=== PATIENT | female | born 1960 | race Caucasian/White ===

== ENCOUNTER → 2017-08-23 | Outpatient (CLI) | payer BC | END | disposition home or self-care (01) | LOC: CFH 11:03 | PROVIDERS: ATTEND Family Medicine | DX: Z12.31 Encounter for screening mammogram for malignant neoplasm of breast (principal) | CPT/HCPCS: 77063; G0202 ==

== ENCOUNTER → 2018-06-19 | Outpatient (CLI) | payer BC | END | disposition home or self-care (01) | LOC: CFH 10:35 | PROVIDERS: ATTEND Nurse Practitioner Family | DX: M54.6 Pain in thoracic spine (principal) | CPT/HCPCS: 72072 ==

== ENCOUNTER 2018-08-30 07:40 | Outpatient (CLI) | payer BC | END 2018-09-06 11:26 | disposition home or self-care (01) | LOC: CFH 07:40 | PROVIDERS: ATTEND Nurse Practitioner Family | DX: Z12.31 Encounter for screening mammogram for malignant neoplasm of breast (principal) | CPT/HCPCS: 77063; 77067 ==

== ENCOUNTER → 2019-11-01 | Outpatient (CLI) | payer BC | END | disposition home or self-care (01) | LOC: CFH 12:02 | PROVIDERS: ATTEND Family Medicine | DX: Z12.31 Encounter for screening mammogram for malignant neoplasm of breast (principal); N64.89 Other specified disorders of breast | CPT/HCPCS: 77063; 77067 ==

== ENCOUNTER 2019-11-09 09:34 | Emergency (ER) | payer BC ==
[~2019-11-09] VITALS: Ht 165.1 cm; Wt 71.3 kg
[2019-11-09 10:28] LABS: BASOPHILS # (AUTO) 0.04 x10^3/uL (0-0.1); BASOPHILS % (AUTO) 1 % (0-1); EOSINOPHILS # (AUTO) 0.07 x10^3/uL (0-0.4); EOSINOPHILS % (AUTO) 1 % (1-7); LYMPHOCYTES # (AUTO) 1.59 x10^3/uL (1-3.4); LYMPHOCYTES % (AUTO) 19 % (22-44); MD NO; MEAN CORPUSCULAR HEMOGLOBIN 29.7 pg (27.0-34.8); MEAN CORPUSCULAR HGB CONC 33.4 g/dL (32.4-35.8); MEAN CORPUSCULAR VOLUME 89.1 fL (80-100); MEAN PLATELET VOLUME 9.1 fL (7.4-10.4); MONOCYTES # (AUTO) 0.38 x10^3/uL (0.2-0.8); MONOCYTES % (AUTO) 5 % (2-9); NEUTROPHILS # (AUTO) 6.23 x10^3/uL (1.8-6.8); NEUTROPHILS % (AUTO) 75 % (42-75); PLATELET COUNT 240 x10^3/uL (130-400); RED BLOOD COUNT 4.99 x10^6/uL (3.82-5.3); RED CELL DISTRIBUTION WIDTH 13.9 % (9.6-15.2)
[2019-11-09 10:44] LABS: ALBUMIN 3.7 g/dL (3.4-5.0); ANION GAP 8 mmol/L (5-15); CALCIUM 9.2 mg/dL (8.5-10.1); CHLORIDE 108 mmol/L (98-107); CREATININE 0.75 mg/dL (0.55-1.02)
[2019-11-09 10:48] LABS: TROPONIN I < 0.015 ng/mL (0.000-0.045)
[2019-11-09 10:59] VITALS: BP 142/91
--- NOTE | 2019-11-09 11:11 | NUR ---
PT RESTING COMFORTABLY IN BED AT THIS TIME. NADN. NO WANTS OR NEEDS EXPRESSED. PT UDATED ON POC.
== END 2019-11-09 11:50 | disposition home or self-care (01) ==
LOC: ED 10:12
DX: R07.89 Other chest pain (principal)
CPT/HCPCS: 36415; 71046; 80048; 82040; 83880; 84484; 85025; 93005; 99284

== ENCOUNTER → 2020-11-20 | Outpatient (CLI) | payer BC | END | disposition home or self-care (01) | LOC: CFH 08:51 | PROVIDERS: ATTEND Family Medicine | DX: Z12.31 Encounter for screening mammogram for malignant neoplasm of breast (principal) | CPT/HCPCS: 77063; 77067 ==

== ENCOUNTER → 2021-03-25 | Outpatient (CLI) | payer BC | END | disposition home or self-care (01) | LOC: CFH 07:09 → MERGE 07:09 | PROVIDERS: ATTEND Family Medicine | DX: M70.61 Trochanteric bursitis, right hip (principal); M51.36 Other intervertebral disc degeneration, lumbar region; Y93.89 Activity, other specified ==